=== PATIENT | male | born 1945 | race Caucasian/White ===

== ENCOUNTER → 2020-03-13 | Outpatient (CLI) | payer MEDICARE ==
--- NOTE | 2020-03-13 13:33 | CT ---
EXAMINATION TYPE: CT abdomen pelvis w con DATE OF EXAM: 03/13/2020 COMPARISON: HISTORY: bladder cancer CT DLP: 705 mGycm Automated exposure control for dose reduction was used. CONTRAST: CT scan of the abdomen pelvis is performed with IV Contrast, patient injected with 100 mL of Isovue 3 00. FINDINGS- LUNG BASES- No significant abnormality is appreciated. LIVER/GB- No gross abnormality is appreciated. PANCREAS- No gross abnormality is seen. SPLEEN- No gross abnormality is seen. ADRENALS- No gross abnormality is seen. KIDNEYS/BLADDER-mild right pelvocaliectasis noted. The distal right ureter demonstrates focal dilatio n stranding surrounding the ureter particularly on images 73 through 78. Along the posterior right la teral bladder wall there is eccentric wall thickening compatible with a bladder neoplastic process me asuring a maximal thickness of 7.5 mm. Prostate gland is also enlarged. There is a large left renal lesion measuring 11 Hounsfield units and 4.9 cm compatible with a Bosniak 1 classification simple cyst. Delayed imaging demonstrates the remaining portion of the collecting systems to be segmentally demons trated and with no definite filling defect. As noted above there is focal dilation of the right urete r which does insert near the area of the bladder neoplasm.. BOWEL-bowel gas pattern nonspecific. LYMPH NODES- No greater than 1cm abdominal or pelvic lymph nodes areappreciated. OSSEOUS STRUCTURES-hypertrophic and degenerative changes of the spine. Sclerotic lesion involving the left iliac bone is too small to characterize but likely benign and related to bone arthropathy of th e hips.. OTHER- atherosclerotic change of the aorta. Small fat-containing periumbilical hernia. IMPRESSION- 1. Eccentric bladder wall thickening measuring thickness of 7.5 mm compatible the patient's history o f bladder cancer. Localized dilation of the distal right ureter which inserts at the level the bladde r neoplasm. There is minimal right pelvocaliectasis. No definite filling defect seen within the remaining portion of the visualized collecting system or u reters bilaterally.
== END | disposition home or self-care (01) ==
LOC: RADCTMAIN 10:55
PROVIDERS: ATTEND Urology
DX: N28.82 Megaloureter (principal); C67.6 Malignant neoplasm of ureteric orifice
CPT/HCPCS: 82565; 84520; 74177; 36415; Q9967

== ENCOUNTER → 2021-12-21 | Outpatient (CLI) | payer MEDICARE ==
--- NOTE | 2021-12-22 09:05 | CT ---
EXAMINATION TYPE: CT abdomen pelvis w con DATE OF EXAM: 12/21/2021 COMPARISON: CT 03/13/2020 HISTORY: H/O BLADDER CA CT DLP: 721.6 mGycm Automated exposure control for dose reduction was used. TECHNIQUE: Helical acquisition of images from the lung bases through the pelvis have been completed. CONTRAST: Performed with Oral Contrast and with IV Contrast, patient injected with 100 mL of Isovue 300. FINDINGS: LUNG BASES: Some bandlike densities may reflect atelectasis or scar, similar to prior, no pleural or pericardial effusion. AORTA: Atheromatous changes are present, some wall calcification is noted, left common iliac artery shows possible stenosis proximally LIVER/GB: Low-attenuation within the liver may reflect hepatic steatosis PANCREAS: No significant abnormality is seen. SPLEEN: No significant abnormality is seen. ADRENALS: No significant abnormality is seen. KIDNEYS: Left kidney shows a large exophytic cyst at the lower pole measuring approximately 6.2 cm in creased from 5.3 cm consistent with Bosniak 1 cyst, lobular contours of the kidneys again noted. Foca l defect present at the posterior right kidney is again noted, stable, at the upper pole of the left kidney there is a hypodense focus better seen on excretory phase measuring approximately 17 mm, indet erminant and likely increased in size compared to prior exam, portal venous phase shows probable enha ncement at this level. At the level of the distal right ureter there is some focal bladder wall thickening similar to prior exam, right hydroureter change is again noted. REPRODUCTIVE ORGANS: Prostate gland is enlarged similar to prior BOWEL: Diverticular changes are associated with. FREE AIR: No Free Air visible. ASCITES: None visible. PELVIC ADENOPATHY: None visualized. RETROPERITONEAL ADENOPATHY: No Retroperitoneal Adenopathy visible. URINARY BLADDER: No significant abnormality is seen. OSSEOUS STRUCTURES: No significant abnormality is seen. IMPRESSION: RIGHT RENAL MASS IS INDETERMINATE AT THE UPPER POLE AND HAS GROWN IN THE INTERVAL, FOLLOW-UP RECOMMEN DED. FINDINGS OF THE DISTAL RIGHT URETER SHOWS STABLE APPEARANCE.
== END | disposition home or self-care (01) ==
LOC: RADCTMAIN 16:13
PROVIDERS: ATTEND Urology
DX: N28.89 Other specified disorders of kidney and ureter (principal); Z85.51 Personal history of malignant neoplasm of bladder
CPT/HCPCS: 82565; 84520; 74177; 36415; Q9967

== ENCOUNTER → 2022-05-05 | Outpatient (CLI) | payer MEDICARE ==
--- NOTE | 2022-05-05 14:38 | MR ---
EXAMINATION: MRI KIDNEYS WITHOUT AND WITH CONTRAST. DATE OF EXAMINATION: 05/05/2022. COMPARISON: None available. INDICATION: Evaluate renal mass seen on CT examination. PROCEDURE: Multiplanar, multisequence images of the abdomen were obtained without with contrast. 7.5 mL of Gadavist was given intravenously. FINDINGS: LOWER CHEST : The visualized lung bases are clear. There are no pleural or pericardial effusions. ABDOMEN: Liver and Biliary system: Normal. Adrenal glands: Normal. Kidneys and ureters: There is a cystic structure within the left kidney which is predominantly cysti c and projects off the inferior pole, however there appears to be an enhancing mural nodule as this w ould raise the suspicion of a renal cell carcinoma. The cystic portion of the lesion measures to 4.9 cm in diameter and the enhancing mural nodule along its medial aspect measures 1.8 cm in diameter. Th e right kidney shows some areas of cortical thinning within the interpolar region which is likely rel ated to scarring. There is an additional enhancing mass within the superior pole of the left kidney m easuring 1.5 cm in diameter that is also suspicious for a renal cell carcinoma. Spleen: Normal. Pancreas: Normal. Gallbladder: Normal. Lymph nodes, Peritoneum and mesentery: There is no mesenteric or retroperitoneal lymphadenopathy. Gastrointestinal tract: There are no dilated loops of bowel or free intraperitoneal air. . The appe ndix is normal. Aorta/IVC: Aorta normal. No aortic aneurysm or dissection. IVC normal. Abdominal wall: Normal. BONES: There are no osseous destructive lesions.. ADDITIONAL SIGNIFICANT FINDINGS: None. IMPRESSION: 1. Predominantly cystic mass within the left kidney has an area of enhancing mural nodularity is susp icious for an area of renal cell carcinoma. 2. Mass within the right kidney additionally shows areas of enhancement and is suspicious for a small renal cell carcinoma as well. Recommendation: Urology consult is recommended for further evaluation to further workup the suspected renal cell carcinomas.
== END | disposition home or self-care (01) ==
LOC: RADMRIMAIN 11:14
PROVIDERS: ATTEND Urology
DX: D41.02 Neoplasm of uncertain behavior of left kidney (principal); N28.1 Cyst of kidney, acquired; N28.89 Other specified disorders of kidney and ureter
CPT/HCPCS: 74183; A9585

== ENCOUNTER 2022-12-07 17:59 | Inpatient (IN) | payer MEDICARE ==
[2022-12-07] MEDS ORDERED: ACETAMINOPHEN TAB 500 MG TAB PO STA (19:08)
--- NOTE | 2022-12-07 19:09 | ED ---
General Adult HPI - General Chief complaint: Altered Mental Status Stated complaint: AMS Time Seen by Provider: 12/07/22 18:26 Source: patient, EMS Mode of arrival: EMS Limitations: altered mental status - History of Present Illness Initial comments: Dictation was produced using [employer] dictation software. please excuse any grammatical, word or spelling errors. Chief Complaint: 77-year-old male presents emergency department for altered mental status History of Present Illness: 77-year-old male who is accompanied by his and son who is visiting from out of state. History of present illness obtained from family members at the bedside. Patient was seen at outside emergency department for confusion and altered mental state. He was diagnosed with urinary tract infection. He has indwelling Perez catheter. He was prescribed Levaquin after being seen and evaluated this morning. ultimately ended up being discharged. By the time he got home he was still confused. Son was visiting from out of state hasn't seen the patient in a year. States that he should be brought to [facility]. Patient is hard of hearing and is unreliable historian however he denies any complaints. Family states that he stay off into space and wouldn't respond sometimes. At baseline patient is very high functioning able to care for himself. The ROS documented in this emergency department record has been reviewed and confirmed by me. Those systems with pertinent positive or negative responses have been documented in the HPI. All other systems are other negative and/or noncontributory. - Related Data Home Medications Medication Instructions Recorded Confirmed Clopidogrel [Plavix] 75 mg PO DIRECTED 12/07/22 12/07/22 Donepezil [Aricept] 10 mg PO HS 12/07/22 12/07/22 Niacin 500 mg PO HS 12/07/22 12/07/22 Omeprazole [PriLOSEC] 20 mg PO HS 12/07/22 12/07/22 Simvastatin [Zocor] 40 mg PO HS 12/07/22 12/07/22 Allergies Allergy/AdvReac Type Severity Reaction Status Date / Time No Known Allergies Allergy Verified 12/07/22 19:25 Review of Systems ROS Statement: Those systems with pertinent positive or pertinent negative responses have been documented in the HPI. ROS Other: All systems not noted in ROS Statement are negative. Past Medical History Additional Past Medical History / Comment(s): pt unable to answer History of Any Multi-Drug Resistant Organisms: None Reported Additional Past Surgical History / Comment(s): pt unable to answer Past Psychological History: No Psychological Hx Reported Smoking Status: Never smoker Past Alcohol Use History: Occasional Past Drug Use History: None Reported General Exam - General Exam Comments Initial Comments: PHYSICAL EXAM: General Impression: Alert and oriented x3, hard of hearing HEENT: Normocephalic atraumatic, extra-ocular movements intact, pupils equal and reactive to light bilaterally, mucous membranes moist. Cardiovascular: Heart regular rate and rhythm Chest: Able to complete full sentences, no retractions, no tachypnea Abdomen: abdomen soft, non-tender, non-distended, no organomegaly Musculoskeletal: Pulses present and equal in all extremities, no peripheral edema Motor: no focal deficits noted Neurological: CN II-XII grossly intact, no focal motor or sensory deficits noted Skin: Intact with no visualized rashes Psych: Normal affect and mood Limitations: altered mental status Course Vital Signs 12/07/22 12/07/22 12/07/22 18:04 18:07 18:10 Temperature 100.3 F H Pulse Rate 88 Respiratory 18 Rate Blood Pressure 136/68 136/68 O2 Sat by Pulse 94 L 93 L 94 L Oximetry 12/07/22 12/07/22 12/07/22 18:20 18:30 18:40 Temperature Pulse Rate Respiratory Rate Blood Pressure 122/63 122/63 132/53 O2 Sat by Pulse 93 L 93 L 93 L Oximetry 12/07/22 12/07/22 12/07/22 18:50 19:00 19:10 Temperature Pulse Rate Respiratory Rate Blood Pressure 130/56 130/56 118/69 O2 Sat by Pulse 93 L Oximetry 12/07/22 19:20 Temperature Pulse Rate 81 Respiratory 18 Rate Blood Pressure 124/57 O2 Sat by Pulse 96 Oximetry Procedures - Sepsis Sepsis Focused Exam #1 Time Sepsis Criteria Met: 20:28 Sepsis Focused Exam Date: 12/07/22 Sepsis Focused Exam Time: 20:28 Sepsis Focused Exam Complete: Yes Vital Signs & RN Notes Reviewed: Yes Capillary Refill: < 2 Seconds: Fingers, Toes Peripheral Pulses: Normal: Radial (R), Radial (L), Posterior Tibialis (R), Posterior Tibialis (L), Dorsalis Pedis (R), Dorsalis Pedis (L) Skin Color: Normal for Patient Respiratory Exam: normal lung sounds Cardiovascular Exam: regular rate, normal rhythm Medical Decision Making - Medical Decision Making My EKG interpretation: Ventricular rate 80, sinus rhythm,. Interval 146, QRS 122, QTC 425. No CA prolongation, no QTC prolongation, no ST or T-wave changes noted. Overall, this EKG is unremarkable Was pt. sent in by a medical professional or institution (, PA, SOIL FERTILITY EXTENSION SPECIALIST, urgent care, hospital, or half-way...) When possible be specific @ -No Did you speak to anyone other than the patient for history (EMS, parent, family, police, friend...)? What history was obtained from this source @ -No Did you review nursing and triage notes (agree or disagree)? Why? @ -I reviewed and agree with nursing and triage notes Were old charts reviewed (outside hosp., previous admission, EMS record, old EKG, old radiological studies, urgent care reports/EKG's, half-way records)? Report findings @ -No old charts were reviewed Differential Diagnosis (chest pain, altered mental status, abdominal pain women, abdominal pain men, vaginal bleeding, musculoskeletal, weakness, fever, dyspnea, syncope, headache, dizziness, GI bleed, back pain, seizure, CVA, palpatations, mental health)? @ -Differential Altered Mental Status: Hypoglycemia, DKA, hypercapnia, ETOH, overdose, CO poisoning, trauma, myxedema coma, HTN encephalopathy, infection, encephalitis, psychosis, intercranial hemorrhage, hepatic encephalopathy, meningitis, CVA, this is not meant to be an all-inclusive list EKG interpreted by me (3pts min.). @ -See above X-rays interpreted by me (1pt min.). @ -None done CT interpreted by me (1pt min.). @ -CT brain negative for acute processes U/S interpreted by me (1pt. min.). @ -None done What testing was considered but not performed or refused? (CT, X-rays, U/S, labs)? Why? @ -None What meds were considered but not given or refused? Why? @ -None Did you discuss the management of the patient with other professionals (professionals i.e. , [facility], SOIL FERTILITY EXTENSION SPECIALIST, lab, RT, psych nurse, social media assistant, architectural manager, teacher, jail officer, manager case)? Give summary @ -Labs imaging and clinical presentation was discussed with Dr. Thomas for admission Was smoking cessation discussed for >3mins.? @ -No Was critical care preformed (if so, how long)? @ -No Were there social determinants of health that impacted care today? How? (Homelessness, low income, unemployed, alcoholism, drug addiction, transportation, low edu. Level, literacy, decrease access to med. care, penitentiary, rehab)? @ -No Was there de-escalation of care discussed even if they declined (Discuss DNR or withdrawal of care, Hospice)? DNR status @ -No What co-morbidities impacted this encounter? (DM, HTN, Smoking, COPD, CAD, Cancer, CVA, ARF, Chemo, Hep., AIDS, mental health diagnosis, sleep apnea, mo rbid obesity)? @ -None Was patient admitted / discharged? Hospital course, mention meds given and route, prescriptions, significant lab abnormalities, going to OR and other pertinent info. @ -77-year-old male recently diagnosed with UTI presents emergency department for reevaluation. Seems to be not doing well at home. He is not taking his medications eating. He does appear to be lethargic according to family. Patient is febrile. Blood pressure normal not tachycardic. Urinalysis positive for UTI. Labs otherwise unremarkable. No lactic acidosis. Disposition options are discussed with family. They're agreeable with admission. Urology on consultation. Case discussed with Dr. Maharaj. Undiagnosed new problem with uncertain prognosis? @ -No Drug Therapy requiring intensive monitoring for toxicity (Heparin, Nitro, Insulin, Cardizem)? @ -No Were any procedures done? @ -No Diagnosis/symptom? Acute, or Chronic, or Acute on Chronic? Uncomplicated (without systemic symptoms) or Complicated (systemic symptoms)? @ -1. UTI sepsis Side effects of treatment? @ -No Exacerbation, Progression, or Severe Exacerbation? @ -No Poses a threat to life or bodily function? How? (Chest pain, [place], [place], pneumonia, PE, COPD, DKA, ARF, appy, cholecystitis, CVA, Diverticulitis, Homicidal, Suicid al, threat to staff... and all critical care pts) @ -yes - Lab Data Result diagrams: 12/07/22 19:15 12/07/22 19:15 Lab Results 12/07/22 12/07/22 12/07/22 Range/Units 19:15 19:15 19:15 WBC 11.5 H (3.8-10.6) k/uL RBC 4.35 (4.30-5.90) m/uL Hgb 13.9 (13.0-17.5) gm/dL Hct 40.8 (39.0-53.0) % MCV 93.9 (80.0-100.0) fL MCH 31.9 (25.0-35.0) pg MCHC 34.0 (31.0-37.0) g/dL RDW 12.7 (11.5-15.5) % Plt Count 167 (150-450) k/uL MPV 8.3 Neutrophils % 88 % Lymphocytes % 6 % Monocytes % 4 % Eosinophils % 1 % Basophils % 0 % Neutrophils # 10.1 H (1.3-7.7) k/uL Lymphocytes # 0.7 L (1.0-4.8) k/uL Monocytes # 0.5 (0-1.0) k/uL Eosinophils # 0.1 (0-0.7) k/uL Basophils # 0.0 (0-0.2) k/uL PT (9.0-12.0) sec INR (<1.2) APTT (22.0-30.0) sec Sodium 134 L (137-145) mmol/L Potassium 4.5 (3.5-5.1) mmol/L Chloride 102 (98-107) mmol/L Carbon Dioxide 22 (22-30) mmol/L Anion Gap 10 mmol/L BUN 22 H (9-20) mg/dL Creatinine 1.49 H (0.66-1.25) mg/dL Est GFR (CKD-EPI)AfAm 51 (>60 ml/min/1.73 sqM) Est GFR (CKD-EPI)NonAf 44 (>60 ml/min/1.73 sqM) Glucose 190 H (74-99) mg/dL Plasma Lactic Acid Giovanni 1.4 (0.7-2.0) mmol/L Calcium 8.8 (8.4-10.2) mg/dL Magnesium 1.7 (1.6-2.3) mg/dL Total Bilirubin 1.0 (0.2-1.3) mg/dL AST 19 (17-59) U/L ALT 21 (4-49) U/L Alkaline Phosphatase 77 (38-126) U/L Total Protein 6.7 (6.3-8.2) g/dL Albumin 3.5 (3.5-5.0) g/dL Urine Color Urine Appearance (Clear) Urine pH (5.0-8.0) Ur Specific Mcdonald (1.001-1.035) Urine Protein (Negative) Urine Glucose (UA) (Negative) Urine Ketones (Negative) Urine Blood (Negative) Urine Nitrite (Negative) Urine Bilirubin (Negative) Urine Urobilinogen (<2.0) mg/dL Ur Leukocyte Esterase (Negative) Urine RBC (0-5) /hpf Urine WBC (0-5) /hpf Urine Bacteria (None) /hpf Hyaline Casts (0-2) /lpf Urine Mucus (None) /hpf 12/07/22 12/07/22 Range/Units 19:15 19:29 WBC (3.8-10.6) k/uL RBC (4.30-5.90) m/uL Hgb (13.0-17.5) gm/dL Hct (39.0-53.0) % MCV (80.0-100.0) fL MCH (25.0-35.0) pg MCHC (31.0-37.0) g/dL RDW (11.5-15.5) % Plt Count (150-450) k/uL MPV Neutrophils % % Lymphocytes % % Monocytes % % Eosinophils % % Basophils % % Neutrophils # (1.3-7.7) k/uL Lymphocytes # (1.0-4.8) k/uL Monocytes # (0-1.0) k/uL Eosinophils # (0-0.7) k/uL Basophils # (0-0.2) k/uL PT 11.5 (9.0-12.0) sec INR 1.1 (<1.2) APTT 24.2 (22.0-30.0) sec Sodium (137-145) mmol/L Potassium (3.5-5.1) mmol/L Chloride (98-107) mmol/L Carbon Dioxide (22-30) mmol/L Anion Gap mmol/L BUN (9-20) mg/dL Creatinine (0.66-1.25) mg/dL Est GFR (CKD-EPI)AfAm (>60 ml/min/1.73 sqM) Est GFR (CKD-EPI)NonAf (>60 ml/min/1.73 sqM) Glucose (74-99) mg/dL Plasma Lactic Acid Giovanni (0.7-2.0) mmol/L Calcium (8.4-10.2) mg/dL Magnesium (1.6-2.3) mg/dL Total Bilirubin (0.2-1.3) mg/dL AST (17-59) U/L ALT (4-49) U/L Alkaline Phosphatase (38-126) U/L Total Protein (6.3-8.2) g/dL Albumin (3.5-5.0) g/dL Urine Color Yellow Urine Appearance Cloudy (Clear) Urine pH 5.5 (5.0-8.0) Ur Specific Mcdonald 1.031 (1.001-1.035) Urine Protein 2+ H (Negative) Urine Glucose (UA) 1+ H (Negative) Urine Ketones 1+ H (Negative) Urine Blood Large H (Negative) Urine Nitrite Positive (Negative) Urine Bilirubin Negative (Negative) Urine Urobilinogen <2.0 (<2.0) mg/dL Ur Leukocyte Esterase Large H (Negative) Urine RBC 34 H (0-5) /hpf Urine WBC 110 H (0-5) /hpf Urine Bacteria Rare H (None) /hpf Hyaline Casts 3 H (0-2) /lpf Urine Mucus Few H (None) /hpf Disposition Clinical Impression: Sepsis secondary to UTI Disposition: ADMITTED IP TO THIS HOSP Condition: Fair Referrals: Carl Gonsales MD [Primary Care Provider] - 1-2 days Decision Time: 20:38
[2022-12-07 19:32] LABS: Basophils % (A) 0 %; Eosinophils # (A) 0.1 k/uL (0-0.7); Eosinophils % (A) 1 %; HCT 40.8 % (39.0-53.0); HGB 13.9 gm/dL (13.0-17.5); Lymphocytes # (A) 0.7 k/uL (1.0-4.8); Lymphocytes % (A) 6 %; MCH 31.9 pg (25.0-35.0); MCV 93.9 fL (80.0-100.0); Mean Platelet Volume 8.3; Monocytes # (A) 0.5 k/uL (0-1.0); Monocytes % (A) 4 %; Neutrophils # (A) 10.1 k/uL (1.3-7.7); Neutrophils % (A) 88 %; Platelet Count 167 k/uL (150-450); RBC 4.35 m/uL (4.30-5.90); RDW 12.7 % (11.5-15.5); WBC 11.5 k/uL (3.8-10.6)
[2022-12-07 19:43] LABS: INR 1.1 (<1.2); Partial Thromboplastin Time 24.2 sec (22.0-30.0); Prothrombin Time 11.5 sec (9.0-12.0)
[2022-12-07 19:51] LABS: Appearance,Urine Cloudy (Clear); Bacteria,Urine Rare /hpf; Bilirubin,Urine Negative (Negative); Blood,Urine Large (Negative); Color,Urine Yellow; Glucose,Urine (UA) 1+ (Negative); Hyaline Casts,Urine 3 /lpf (0-2); Ketones,Urine 1+ (Negative); Leukocyte Esterase,Urine Large (Negative); Mucus,Urine Few /hpf; Nitrite,Urine Positive (Negative); PH, Urine 5.5 (5.0-8.0); Protein,Urine 2+ (Negative); RBC,Urine 34 /hpf (0-5); Specific Gravity,Urine 1.031 (1.001-1.035); Urobilinogen,Urine <2.0 mg/dL (<2.0); WBC,Urine 110 /hpf (0-5)
[2022-12-07 19:54] LABS: Albumin 3.5 g/dL (3.5-5.0); Calcium 8.8 mg/dL (8.4-10.2); Magnesium 1.7 mg/dL (1.6-2.3); Potassium 4.5 mmol/L (3.5-5.1); Total Protein 6.7 g/dL (6.3-8.2)
[2022-12-07] MEDS ORDERED: cefTRIAXone IN SWFI 1,000 MG/10 ML SYRINGE IVP STA (20:03)
--- NOTE | 2022-12-07 20:21 | CT ---
EXAMINATION TYPE: CT brain wo con DATE OF EXAM: 12/07/2022 HISTORY: AMS CT DLP: 1174.4 mGycm. Automated Exposure Control for Dose Reduction was Utilized. TECHNIQUE: CT scan of the head is performed without contrast. COMPARISON: None. FINDINGS: There is no acute intracranial hemorrhage or midline shift identified. There is moderate diffuse ventricular and sulcal prominence consistent with diffuse age-related cerebral atrophy. Ther e is mild low-attenuation in the periventricular white matter consistent with chronic small vessel is chemic change. Soft tissue density consistent with cerumen is seen in the bilateral external auditory canals. The globes are intact and the visualized sinuses are clear. IMPRESSION: No acute intracranial hemorrhage or midline shift. There is moderate diffuse age-relate d cerebral atrophy and mild chronic small vessel ischemic change noted.
[2022-12-07] MEDS ORDERED: NALOXONE 0.4 MG/ML 1 ML VIAL IV PRN (20:32)
[2022-12-07] MEDS: SODIUM CHLORIDE 0.9% 1,000 ML IV SCH (20:44)
[2022-12-07] MEDS: ATORVASTATIN 20 MG TAB PO SCH (22:47)
[2022-12-07] MEDS: PANTOPRAZOLE 40 MG TABLET PO SCH (22:47)
[2022-12-08] MEDS: ACETAMINOPHEN TAB 325 MG TAB PO PRN ×2 (01:52→17:43)
[2022-12-08] MEDS: SODIUM CHLORIDE 0.9% 1,000 ML IV SCH ×2 (11:52→19:16)
--- NOTE | 2022-12-08 16:24 | P.HPIM ---
History of Present Illness H&P Date: 12/07/22 Chief Complaint: Change but status This is a 77-year-old patient follows Dr. Sams. Reyes the ER by the and the son. [place]iting from out [place]. Patient was seen at [facility] for confusion and altered mental status. Diagnosed with UTI. Has indwelling Perez catheter. He was discharged on Levaquin. This morning. When the patient got home he was still confused. Son is from out of state hasn't seen the patient for about a year. Patient is hard of hearing cancer difficult historian. Patient underwent scraping of the bladder with Dr. simon a week ago. Due to see him in the office later this week. Denies any nausea vomiting. States his appetite is fair. Denies any pain. Patient had a Perez catheter since the bladder procedure a week ago. Patient's found to be more confused than baseline. Found to UTI in the ER. Reported to have a fever Review of systems: Difficult to obtain as patient has not of hearing. Past medical history to include: TIA, bladder cancer, cognitive impairment, GERD, hypercholesterolemia Social history: Lives with his deifjt-ds-tyi Rubina. Independent with ADLs. Physical examination: VITAL SIGNS: [100.3, 88, 18, 136/60, 94% room air GENERAL: BMI 21.7, laying in bed tired a bit confused. EYES: Pupils equal. Conjunctiva normal. HEENT: External appearance of nose and ears normal, oral cavity grossly normal. Hard of hearing NECK: JVD not raised; masses not palpable. HEART: First and second heart sounds are normal; no edema. LUNGS: Respiratory rate normal; clear to auscultation. ABDOMEN: Soft, nontender, liver spleen not palpable, no masses palpable. PSYCH: Able to answer some questions.l. MUSCULOSKELETAL:No Clubbing/cyanosis;muscles-grossly intact NEUROLOGICAL: Cranial nerves grossly intact; no facial asymmetry, power and sensation grossly intact. LYMPHATICS: No lymph nodes palpable in the axilla and neck INVESTIGATIONS, reviewed in the clinical context: White count 11.5 hemoglobin 13.9 platelets 167 sodium 134 potassium 4.5. 22 creatinine 1.49 UA positive for nitrite, leukoesterase Assessment plan: -Acute complicated UTI secondary to Perez catheter. Patient had bladder pr ocedure done a week ago. Has had a Perez catheter for about a week. causing delirium IV ceftriaxone. Consult nephrology -Acute metabolic causing delirium Treat underlying infection -Bladder cancer with scrapings done last week. By Dr. simon. 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 Aricept -Hyperlipidemia Zocor 40 mg daily at bedtime -GERD Prilosec 20 mg daily at bedtime -Full code Past Medical History Additional Past Medical History / Comment(s): pt unable to answer History of Any Multi-Drug Resistant Organisms: None Reported Additional Past Surgical History / Comment(s): pt unable to answer Past Psychological History: No Psychological Hx Reported Smoking Status: Never smoker Past Alcohol Use History: Occasional Past Drug Use History: None Reported Medications and Allergies Home Medications Medication Instructions Recorded Confirmed Type Clopidogrel [Plavix] 75 mg PO DIRECTED 12/07/22 12/07/22 History Donepezil [Aricept] 10 mg PO HS 12/07/22 12/07/22 History Niacin 500 mg PO HS 12/07/22 12/07/22 History Omeprazole [PriLOSEC] 20 mg PO HS 12/07/22 12/07/22 History Simvastatin [Zocor] 40 mg PO HS 12/07/22 12/07/22 History Allergies Allergy/AdvReac Type Severity Reaction Status Date / Time No Known Allergies Allergy Verified 12/07/22 19:25 Physical Exam Vitals: Vital Signs Temp Pulse Resp BP Pulse Ox 12/07/22 20:40 117/74 12/07/22 20:30 109/64 95 12/07/22 20:20 71 17 109/64 94 L 12/07/22 20:10 116/51 12/07/22 20:00 120/60 94 L 12/07/22 19:50 120/60 94 L 12/07/22 19:40 129/55 93 L 12/07/22 19:30 124/57 12/07/22 19:20 81 18 124/57 96 12/07/22 19:10 118/69 12/07/22 19:00 130/56 12/07/22 18:50 130/56 93 L 12/07/22 18:40 132/53 93 L 12/07/22 18:30 122/63 93 L 12/07/22 18:20 122/63 93 L 12/07/22 18:10 136/68 94 L 12/07/22 18:07 93 L 12/07/22 18:04 100.3 F H 88 18 136/68 94 L Intake and Output 12/07/22 12/07/22 12/07/22 06:59 14:59 22:59 Other: Weight 72.575 kg Results CBC & Chem 7: 12/07/22 19:15 12/07/22 19:15 Labs: Abnormal Lab Results - Last 24 Hours (Table) 12/07/22 12/07/22 12/07/22 Range/Units 19:15 19:15 19:29 WBC 11.5 H (3.8-10.6) k/uL Neutrophils # 10.1 H (1.3-7.7) k/uL Lymphocytes # 0.7 L (1.0-4.8) k/uL Sodium 134 L (137-145) mmol/L BUN 22 H (9-20) mg/dL Creatinine 1.49 H (0.66-1.25) mg/dL Glucose 190 H (74-99) mg/dL Urine Protein 2+ H (Negative) Urine Glucose (UA) 1+ H (Negative) Urine Ketones 1+ H (Negative) Urine Blood Large H (Negative) Ur Leukocyte Esterase Large H (Negative) Urine RBC 34 H (0-5) /hpf Urine WBC 110 H (0-5) /hpf Urine Bacteria Rare H (None) /hpf Hyaline Casts 3 H (0-2) /lpf Urine Mucus Few H (None) /hpf
--- NOTE | 2022-12-08 17:59 | P.PN ---
Progress Note - Text Progress Note Date: 12/08/22 Chief Complaint: Change but status This is a 77-year-old patient follows Dr. Sams. Reyes the ER by the and the son. Visiting from out of state. Patient was seen at [facility] for confusion and altered mental status. Diagnosed with UTI. Has indwelling Perez catheter. He was discharged on Levaquin. This morning. When the patient got home he was still confused. Son is from out of state hasn't seen the patient for about a year. Patient is hard of hearing cancer difficult historian. Patient underwent scraping of the bladder with Dr. simon a week ago. Due to see him in the office later this week. Denies any nausea vomiting. States his appetite is fair. Denies any pain. Patient had a Perez catheter since the bladder procedure a week ago. Patient's found to be more confused than baseline. Found to UTI in the ER. Reported to have a fever May 18: Laying in bed. More awake today. Answering questions better. Spiked a fever to 101.6 last night. Ate little breakfast Active Medications Acetaminophen (Acetaminophen Tab 325 Mg Tab) 650 mg PO Q6HR PRN PRN Reason: Mild Pain or Fever > 100.5 Last Admin: 12/08/22 01:52 Dose: 650 mg Atorvastatin Calcium (Atorvastatin 20 Mg Tab) 20 mg PO [facility] Last Admin: 12/07/22 22:47 Dose: 20 mg Sodium Chloride (Saline 0.9%) 1,000 mls @ 75 mls/hr IV .[id number] [facility] Last Admin: 12/08/22 11:52 Dose: Not Given Ceftriaxone Sodium 1 gm/ (Sodium Chloride) 50 mls @ 100 mls/hr IVPB Q12H [facility]; Protocol Last Admin: 12/08/22 08:03 Dose: 100 mls/hr Naloxone HCl (Naloxone 0.4 Mg/Ml 1 Ml Vial) 0.2 mg IV Q2M PRN PRN Reason: Opioid Reversal Pantoprazole Sodium (Pantoprazole 40 Mg Tablet) 40 mg PO [facility] Last Admin: 12/07/22 22:47 Dose: 40 mg Past medical history to include: TIA, bladder cancer, cognitive impairment, GERD, hypercholesterolemia Social history: Lives with his uqlfob-vs-zgg Rubina. Independent with ADLs. Physical examination: VITAL SIGNS: T-max 101.6, 62, 16, 100/64, 97% room air GENERAL: BMI 21.7, laying in bed tired more awake EYES: Pupils equal. Conjunctiva normal. HEENT: External appearance of nose and ears normal, oral cavity grossly normal. Hard of hearing NECK: JVD not raised; masses not palpable. HEART: First and second heart sounds are normal; no edema. LUNGS: Respiratory rate normal; clear to auscultation. ABDOMEN: Soft, nontender, liver spleen not palpable, no masses palpable. PSYCH: Answering questions better, more awake INVESTIGATIONS, reviewed in the clinical context: White count 11.5 hemoglobin 13.9 platelets 167 sodium 134 potassium 4.5. 22 creatinine 1.49 UA positive for nitrite, leukoesterase Assessment plan: -Acute complicated UTI secondary to Perez catheter. Patient had bladder procedure done a week ago. Has had a Perez catheter for about a week. causing delirium: Slow improvement IV ceftriaxone. Consult nephrology -Sepsis from conjugated UTI, POA: Slow improvement -Acute metabolic encephalopathy with delirium: Improvement Treat underlying infection -Evaluate for CK D Renal ultrasound -Bladder cancer with scrapings done last week. By Dr. simon. 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 Aricept -Hyperlipidemia Zocor 40 mg daily at bedtime -GERD Prilosec 20 mg daily at bedtime -Full code Increase IV fluids 200 mL out. Continue IV ceftriaxone. Other medications to continue. Follow labs
[2022-12-08] MEDS: PANTOPRAZOLE 40 MG TABLET PO SCH (20:02)
[2022-12-08] MEDS: ATORVASTATIN 20 MG TAB PO SCH (20:02)
--- NOTE | 2022-12-08 20:08 | US ---
EXAMINATION TYPE: US kidneys/renal and bladder DATE OF EXAM: 12/08/2022 COMPARISON: MRI: 05/05/22 CLINICAL INDICATION: Male, 77 years old with history of Evaluate for CK D; eval for ckd EXAM MEASUREMENTS: Right Kidney: 9.9 x 4.9 x 4.7 cm Left Kidney: 11.4 x 4.2 x 4.8 cm Right Kidney: No hydronephrosis or masses seen Left Kidney: Predominantly cyst with solid component seen in inferior pole measuring 3.6 x 3.7 x 3.3c m as Seen on MRI in 2021 Bladder: Limited due to donnelly Bilateral Jets seen: No IMPRESSION: 1. No evidence of obstructive uropathy. 2. Left renal cyst with solid component as seen on prior MRI 05/05/2022. This is a similar appearanc e to prior MRI however the check totaler did not measure there is no ability to measure the soft tissue component but appears proportional to prior MRI.
--- NOTE | 2022-12-08 20:39 | P.GSCN ---
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 He underwent resection of recurrent tumors on 11/30/2022. Pathology showed high-grade urothelial carcinoma with lamina propria invasion.The Perez catheter remains in place. He presents with weakness and altered mental status. Evaluation revealed that he was febrile, and he was admitted with UTI and possible sepsis. Review of Systems - Constitutional Reports fever, Reports weakness - Genitourinary Denies dysuria, Denies hematuria - Neurological Reports confusion, Reports weakness Past Medical History Additional Past Medical History / Comment(s): Bladder cancer, TIAs 4-5 yrs ago, History of Any Multi-Drug Resistant Organisms: None Reported Additional Past Surgical History / Comment(s): bypass sx on leg >20yrs ago, blader scrapings Past Anesthesia/Blood Transfusion Reactions: No Reported Reaction Past Psychological History: No Psychological Hx Reported Smoking Status: Former smoker Past Alcohol Use History: Occasional Past Drug Use History: None Reported Medications and Allergies Home Medications Medication Instructions Recorded Confirmed Type Clopidogrel [Plavix] 75 mg PO DIRECTED 12/07/22 12/07/22 History Donepezil [Aricept] 10 mg PO HS 12/07/22 12/07/22 History Niacin 500 mg PO HS 12/07/22 12/07/22 History Omeprazole [PriLOSEC] 20 mg PO HS 12/07/22 12/07/22 History Simvastatin [Zocor] 40 mg PO HS 12/07/22 12/07/22 History Allergies Allergy/AdvReac Type Severity Reaction Status Date / Time No Known Allergies Allergy Verified 12/07/22 19:25 Surgical - Exam Vital Signs Temp Pulse Resp BP Pulse Ox 100.3 F H 88 18 136/68 94 L 12/07/22 18:04 12/07/22 18:04 12/07/22 18:04 12/07/22 18:04 12/07/22 18:04 - General well developed, well nourished, no distress - Respiratory normal respiratory effort - Abdomen Abdomen: soft, non tender, no guarding, no rigid, no rebound - Genitourinary normal penis with no external lesions, testicles non-tender - Psychiatric oriented to time, oriented to person, oriented to place, speech is normal, memory intact Results - Labs 12/07/22 19:15 12/07/22 19:15 Abnormal Lab Results - Last 24 Hours (Table) 12/07/22 12/07/22 12/07/22 Range/Units 19:15 19:15 19:29 WBC 11.5 H (3.8-10.6) k/uL Neutrophils # 10.1 H (1.3-7.7) k/uL Lymphocytes # 0.7 L (1.0-4.8) k/uL Sodium 134 L (137-145) mmol/L BUN 22 H (9-20) mg/dL Creatinine 1.49 H (0.66-1.25) mg/dL Glucose 190 H (74-99) mg/dL Urine Protein 2+ H (Negative) Urine Glucose (UA) 1+ H (Negative) Urine Ketones 1+ H (Negative) Urine Blood Large H (Negative) Ur Leukocyte Esterase Large H (Negative) Urine RBC 34 H (0-5) /hpf Urine WBC 110 H (0-5) /hpf Urine Bacteria Rare H (None) /hpf Hyaline Casts 3 H (0-2) /lpf Urine Mucus Few H (None) /hpf Diabetes panel 12/07/22 Range/Units 19:15 Sodium 134 L (137-145) mmol/L Potassium 4.5 (3.5-5.1) mmol/L Chloride 102 (98-107) mmol/L Carbon Dioxide 22 (22-30) mmol/L BUN 22 H (9-20) mg/dL Creatinine 1.49 H (0.66-1.25) mg/dL Glucose 190 H (74-99) mg/dL Calcium 8.8 (8.4-10.2) mg/dL AST 19 (17-59) U/L ALT 21 (4-49) U/L Alkaline Phosphatase 77 (38-126) U/L Total Protein 6.7 (6.3-8.2) g/dL Albumin 3.5 (3.5-5.0) g/dL Calcium panel 12/07/22 Range/Units 19:15 Calcium 8.8 (8.4-10.2) mg/dL Albumin 3.5 (3.5-5.0) g/dL Pituitary panel 12/07/22 Range/Units 19:15 Sodium 134 L (137-145) mmol/L Potassium 4.5 (3.5-5.1) mmol/L Chloride 102 (98-107) mmol/L Carbon Dioxide 22 (22-30) mmol/L BUN 22 H (9-20) mg/dL Creatinine 1.49 H (0.66-1.25) mg/dL Glucose 190 H (74-99) mg/dL Calcium 8.8 (8.4-10.2) mg/dL Adrenal panel 12/07/22 Range/Units 19:15 Sodium 134 L (137-145) mmol/L Potassium 4.5 (3.5-5.1) mmol/L Chloride 102 (98-107) mmol/L Carbon Dioxide 22 (22-30) mmol/L BUN 22 H (9-20) mg/dL Creatinine 1.49 H (0.66-1.25) mg/dL Glucose 190 H (74-99) mg/dL Calcium 8.8 (8.4-10.2) mg/dL Total Bilirubin 1.0 (0.2-1.3) mg/dL AST 19 (17-59) U/L ALT 21 (4-49) U/L Alkaline Phosphatase 77 (38-126) U/L Total Protein 6.7 (6.3-8.2) g/dL Albumin 3.5 (3.5-5.0) g/dL Assessment and Plan Assessment: The patient underwent resection of recurrent tumors on 11/30/2022. He now presents with weakness and mental status changes. Findings are suggestive of a UTI with possible sepsis. (1) Sepsis secondary to UTI Current Visit: Yes Status: Acute Code(s): A41.9 - SEPSIS, UNSPECIFIED ORGANISM; N39.0 - URINARY TRACT INFECTION, SITE NOT SPECIFIED SNOMED Code(s): 447561076 (2) Malignant neoplasm of bladder, unspecified Current Visit: Yes Status: Acute Code(s): C67.9 - MALIGNANT NEOPLASM OF BLADDER, UNSPECIFIED SNOMED Code(s): 223731433 Plan: Agree with antibiotic therapy and IV hydration. He is currently receiving ceftriaxone. The Perez catheter will likely be removed tomorrow. Time with Patient: Greater than 30
[2022-12-08 23:22] LABS: Appearance,Urine Cloudy (Clear); Bacteria,Urine Rare /hpf; Bilirubin,Urine Negative (Negative); Blood,Urine Large (Negative); Color,Urine Yellow; Glucose,Urine (UA) Trace (Negative); Ketones,Urine Negative (Negative); Leukocyte Esterase,Urine Large (Negative); Mucus,Urine Rare /hpf; Nitrite,Urine Negative (Negative); Protein,Urine 1+ (Negative); RBC,Urine 12 /hpf (0-5); Specific Gravity,Urine 1.017 (1.001-1.035); Squamous Epithelial Cell,Urine <1 /hpf (0-4); Urobilinogen,Urine <2.0 mg/dL (<2.0); WBC,Urine 131 /hpf (0-5)
[2022-12-09] MEDS: SODIUM CHLORIDE 0.9% 1,000 ML IV SCH ×2 (06:17→14:19)
[2022-12-09 08:16] VITALS: BP 144/68; PULSE 70; RESP 19; TEMP 98.1
[2022-12-09 11:49] LABS: African American GFR (CKD) 60 (>60 ml/min/1.73 sqM); Anion Gap 6 mmol/L; Blood Urea Nitrogen 17 mg/dL (9-20); Calcium 8.2 mg/dL (8.4-10.2); Carbon Dioxide 23 mmol/L (22-30); Chloride 107 mmol/L (98-107); Glucose 180 mg/dL (74-99); Non-African American GFR(CKD) 52 (>60 ml/min/1.73 sqM); Sodium 136 mmol/L (137-145)
[2022-12-09 11:58] LABS: Basophils % (A) 0 %; Eosinophils # (A) 0.3 k/uL (0-0.7); Eosinophils % (A) 4 %; HCT 40.2 % (39.0-53.0); HGB 13.5 gm/dL (13.0-17.5); Lymphocytes # (A) 1.4 k/uL (1.0-4.8); Lymphocytes % (A) 20 %; MCH 31.8 pg (25.0-35.0); MCHC 33.7 g/dL (31.0-37.0); MCV 94.6 fL (80.0-100.0); Monocytes # (A) 0.5 k/uL (0-1.0); Monocytes % (A) 8 %; Neutrophils # (A) 4.6 k/uL (1.3-7.7); Neutrophils % (A) 65 %; Platelet Count 168 k/uL (150-450); RBC 4.25 m/uL (4.30-5.90); RDW 12.9 % (11.5-15.5); WBC 7.1 k/uL (3.8-10.6)
--- NOTE | 2022-12-09 17:40 | P.PN ---
Subjective Progress Note Date: 12/09/22 Principal diagnosis: Bladder cancer UTI The patient was seen this morning and stated that he was feeling much better. The Perez catheter remained in place, draining clear yellow urine. Objective - Vital Signs Vital signs: Vital Signs Temp 98.1 F 12/09/22 07:12 Pulse 70 12/09/22 07:12 Resp 19 12/09/22 07:12 BP 144/68 12/09/22 07:12 Pulse Ox 94 L 12/09/22 07:12 FiO2 Intake & Output 12/08/22 12/09/22 12/09/22 18:59 06:59 18:59 Output Total 425 520 Balance -425 -520 Output: Urine 425 520 Other: Voiding Method Indwelling Catheter Indwelling Catheter - Constitutional General appearance: Present: average body habitus, no acute distress - Genitourinary Genitourinary Comment(s): Normal phallus, normal testes - Psychiatric Psychiatric: Present: A&O x's 3 - Labs CBC & Chem 7: 12/09/22 09:59 12/09/22 09:59 Labs: Abnormal Lab Results - Last 24 Hours (Table) 12/08/22 12/09/22 12/09/22 Range/Units 22:35 09:59 09:59 RBC 4.25 L (4.30-5.90) m/uL Sodium (137-145) mmol/L Creatinine (0.66-1.25) mg/dL Glucose (74-99) mg/dL Calcium (8.4-10.2) mg/dL Procalcitonin 0.84 H (0.02-0.09) ng/mL Urine Protein 1+ H (Negative) Urine Glucose (UA) Trace H (Negative) Urine Blood Large H (Negative) Ur Leukocyte Esterase Large H (Negative) Urine RBC 12 H (0-5) /hpf Urine WBC 131 H (0-5) /hpf Urine WBC Clumps Occasional H (None) /hpf Urine Bacteria Rare H (None) /hpf Urine Mucus Rare H (None) /hpf 12/09/22 Range/Units 09:59 RBC (4.30-5.90) m/uL Sodium 136 L (137-145) mmol/L Creatinine 1.31 H (0.66-1.25) mg/dL Glucose 180 H (74-99) mg/dL Calcium 8.2 L (8.4-10.2) mg/dL Procalcitonin (0.02-0.09) ng/mL Urine Protein (Negative) Urine Glucose (UA) (Negative) Urine Blood (Negative) Ur Leukocyte Esterase (Negative) Urine RBC (0-5) /hpf Urine WBC (0-5) /hpf Urine WBC Clumps (None) /hpf Urine Bacteria (None) /hpf Urine Mucus (None) /hpf Microbiology - Last 24 Hours (Table) 12/08/22 22:35 Urine Culture - Preliminary Urine,Catheterized Assessment and Plan Assessment: The patient underwent resection of recurrent tumors on 11/30/2022. He was admitted with weakness and mental status changes. Findings were suggestive of a UTI with possible sepsis. He has received IV hydration and parenteral analgesics and is feeling much better. (1) Sepsis secondary to UTI Status: Acute Code(s): A41.9 - SEPSIS, UNSPECIFIED ORGANISM; N39.0 - URINARY TRACT INFECTION, SITE NOT SPECIFIED SNOMED Code(s): 697623368 (2) Malignant neoplasm of bladder, unspecified Status: Acute Code(s): C67.9 - MALIGNANT NEOPLASM OF BLADDER, UNSPECIFIED SNOMED Code(s): 852224739 Plan: Patient is to be discharged home on oral Ceftin. He was given an appointment to follow-up with me on 12/16/2022.
--- NOTE | 2022-12-09 19:20 | P.DS ---
Providers Date of admission: 12/07/22 20:34 Expected date of discharge: 12/09/22 Attending physician: Keon Thomas Consults: 12/07/22 20:32 Consult Physician Routine Consulting Provider: Tomas Claudio Consult Reason/Comments: donnelly catheter Do you want consulting provider notified?: Yes Primary care physician: [facility] Course: Chief Complaint: Change but status This is a 77-year-old patient follows Dr. Sams. Reyes the ER by the and the son. [place]iting [place]. Patient was seen at [facility] for confusion and altered mental status. Diagnosed with UTI. Has indwelling Donnelly catheter. He was discharged on Levaquin. This morning. When the patient got home he was still confused. Son is from out of state hasn't seen the patient for about a year. Patient is hard of hearing cancer difficult historian. Patient underwent scraping of the bladder with Dr. claudio a week ago. Due to see him in the office later this week. Denies any nausea vomiting. States his appetite is fair. Denies any pain. Patient had a Donnelly catheter since the bladder procedure a week ago. Patient's found to be more confused than baseline. Found to UTI in the ER. Reported to have a fever May 18: Laying in bed. More awake today. Answering questions better. Spiked a fever to 101.6 last night. Ate little breakfast December 09: Eating well. Donnelly catheter discontinued. Making good urine.. Repeat hemoglobin stable. Complete 3 more days of Ceftin. Follow up with Dr. claudio outpatient. Discussion and discharge planning more than 35 minutes Past medical history to include: TIA, bladder cancer, cognitive impairment, GERD, hypercholesterolemia Social history: Lives with his ldrgvt-kw-ajm Rubina. Independent with ADLs. Physical examination: VITAL SIGNS: 98.1, 70, 19, 140/60, 94% room air GENERAL: BMI 21.7, laying in bed comfortable EYES: Pupils equal. Conjunctiva normal. HEENT: External appearance of nose and ears normal, oral cavity grossly normal. Hard of hearing NECK: JVD not raised; masses not palpable. HEART: First and second heart sounds are normal; no edema. LUNGS: Respiratory rate normal; clear to auscultation. ABDOMEN: Soft, nontender, liver spleen not palpable, no masses palpable. PSYCH: Answering questions better, more awake INVESTIGATIONS, reviewed in the clinical context: December 09: White count 7.1 with 30.5 potassium 4 creatinine 1.31 White count 11.5 hemoglobin 13.9 platelets 167 sodium 134 potassium 4.5. 22 creatinine 1.49 UA positive for nitrite, leukoesterase Assessment plan: -Acute complicated UTI secondary to Donnelly catheter. Patient had bladder procedure done a week ago. Has had a Donnelly catheter for about a week. causing delirium: Improved IV ceftriaxone. Patient to follow outpatient with urology. Continue 3 more days of Ceftin. -Sepsis from conjugated UTI, POA: Improved -Acute metabolic encephalopathy with delirium: Improved Treat underlying infection -Evaluate for CK D Renal ultrasound -Bladder cancer with scrapings done last week. By Dr. claudio. 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 Aricept -Hyperlipidemia Zocor 40 mg daily at bedtime -GERD Prilosec 20 mg daily at bedtime -Full code Disposition: Home Plan - Discharge Summary Discharge Rx Participant: Yes New Discharge Prescriptions: New Cefuroxime [Ceftin] 250 mg PO BID #10 tab Continue Omeprazole [PriLOSEC] 20 mg PO HS Donepezil [Aricept] 10 mg PO HS Clopidogrel [Plavix] 75 mg PO DIRECTED Niacin 500 mg PO HS Simvastatin [Zocor] 40 mg PO HS Discharge Medication List Clopidogrel [Plavix] 75 mg PO DIRECTED 12/07/22 [History] Donepezil [Aricept] 10 mg PO HS 12/07/22 [History] Niacin 500 mg PO HS 12/07/22 [History] Omeprazole [PriLOSEC] 20 mg PO HS 12/07/22 [History] Simvastatin [Zocor] 40 mg PO HS 12/07/22 [History] Cefuroxime [Ceftin] 250 mg PO BID #10 tab 12/09/22 [Rx] Follow up Appointment(s)/Referral(s): Tomas Claudio MD [STAFF PHYSICIAN] - 12/16/22 9:00 am Carl Gonsales MD [Primary Care Provider] - 12/13/22 2:30 pm (At [facility]) Patient Instructions/Handouts: Urinary Tract Infection in Men (DC) Discharge Disposition: HOME WITH HOME HEALTH SERVICES
== END 2022-12-09 14:46 | disposition home health service (06) | DRG 698 ==
LOC: EC 17:59 → 4SSUR 20:34
PROVIDERS: ADMIT Hospitalist; ATTEND Hospitalist
DX: T83.511A Infection and inflammatory reaction due to indwelling urethral catheter, initial encounter (principal); A41.9 Sepsis, unspecified organism; G93.41 Metabolic encephalopathy; F05 Delirium due to known physiological condition; N39.0 Urinary tract infection, site not specified; C67.9 Malignant neoplasm of bladder, unspecified; E78.00 Pure hypercholesterolemia, unspecified; K21.9 Gastro-esophageal reflux disease without esophagitis; Z86.73 Personal history of transient ischemic attack (TIA), and cerebral infarction without residual deficits; F02.80 Dementia in other diseases classified elsewhere, unspecified severity, without behavioral disturbance, psychotic disturbance, mood disturbance, and anxiety; Z79.899 Other long term (current) drug therapy; Y73.2 Prosthetic and other implants, materials and accessory gastroenterology and urology devices associated with adverse incidents
CPT/HCPCS: 36415; 70450; 76770; 80048; 80053; 81001; 83605; 83735; 84145; 85025; 85610; 85730; 87086; 93005; 96361; 96374; 99285

== ENCOUNTER → 2023-01-27 | Outpatient (CLI) | payer MEDICARE ==
--- NOTE | 2023-01-28 11:12 | MR ---
EXAMINATION TYPE: MR abdomen wo/w con DATE OF EXAM: 01/27/2023 2:58 PM INDICATION: Patient age:Male; 77 years old; Reason for study: D41.01 renal ca;. Renal cancer. COMPARISON: MRI kidney 05/05/2022. TECHNIQUE: Multiplanar multi-sequence imaging was performed without contrast. Post contrast imaging was performed. Post IV contrast subtraction images were also submitted for review. IV Contrast: 7.5 cc Gadavist FINDINGS: LOWER CHEST: No gross irregularity. ABDOMEN Extensive breathing artifact is noted. Liver: Unremarkable. Gallbladder and Bile ducts: Unremarkable. Pancreas: Unremarkable. Spleen: Suspected prior injury to the splenic cortex with undulating border. Adrenal glands: Unremarkable. Kidneys: Right: No evidence of obstructive uropathy. There is an enhancing mass in the medial aspect measuring 16 mm. Which is similar to prior. Left: Left inferior pole cystic lesion measuring 3.5 cm with 19 mm peripheral nodule, previously 15 m m. Nodule does demonstrate some postcontrast enhancement Stomach and Bowel: Few scattered colonic diverticula are present. No evidence of bowel obstruction. Peritoneum: No evidence of pneumoperitoneum or free fluid. Vasculature: Unremarkable. No aortic aneurysm. Musculoskeletal: The osseous structures appear intact. Lymph Nodes: No gross evidence for lymphadenopathy. Abdominal wall: Unremarkable. IMPRESSION: 1. Interval increase in size of the mural nodule in the left inferior kidney renal cyst concerning f or renal cell carcinoma. 2. Right kidney 16 mm partially exophytic enhancing lesion suspicious for renal cell carcinoma. This is not significant change in size from prior on 05/05/2022.
== END | disposition home or self-care (01) ==
LOC: RADMRIMAIN 13:29
PROVIDERS: ATTEND Urology
DX: D41.01 Neoplasm of uncertain behavior of right kidney (principal); D41.02 Neoplasm of uncertain behavior of left kidney; N28.1 Cyst of kidney, acquired
CPT/HCPCS: 74183; A9585

== ENCOUNTER → 2023-04-04 | Outpatient (CLI) | payer MEDICARE ==
--- NOTE | 2023-04-04 10:44 | XR ---
EXAMINATION TYPE: XR chest 2V DATE OF EXAM: 04/04/2023 COMPARISON: NONE HISTORY: Shortness of breath TECHNIQUE: Frontal and lateral views of the chest are obtained. FINDINGS: Scattered senescent parenchymal changes noted. Hyperinflation compatible with COPD. No evidence for infiltrate. No evidence for atelectasis. Heart size is stable. Mediastinal structures are stable and grossly unremarkable. No evidence for hilar prominence. Degenerative changes dorsal spine. IMPRESSION: 1. No evidence for acute pulmonary disease.
[2023-04-04 15:18] LABS: Appearance,Urine Clear (Clear); Bilirubin,Urine Negative (Negative); Blood,Urine Negative (Negative); Color,Urine Yellow (Yellow); Ketones,Urine Negative (Negative); Nitrite,Urine Negative (Negative); PH, Urine 5.5; Specific Gravity,Urine 1.013 (1.001-1.030); Urobilinogen,Urine 0.2 E.U./DL
[2023-04-04 16:38] LABS: Basophils # (A) 0.08 X 10*3/uL (0.00-0.10); Basophils % (A) 1.1 %; Eosinophils # (A) 0.31 X 10*3/uL (0.04-0.35); Eosinophils % (A) 4.4 %; HCT 46.4 % (39.6-50.0); HGB 15.2 d/dL (13.0-17.0); Lymphocytes % (A) 31.1 %; MCH 30.8 pg (27.0-32.0); MCHC 32.8 d/dL (32.0-37.0); MCV 94.1 FL (80.0-97.0); Mean Platelet Volume 12.1 FL (9.5-12.2); Monocytes # (A) 0.84 X 10*3/uL (0.20-1.00); Monocytes % (A) 11.9 %; NRBC Per 100 WBC 0 X 10*3/uL (0.00-0.01); Neutrophils # (A) 3.62 X 10*3/uL (1.80-7.70); Neutrophils % (A) 51.2 %; Platelet Count 281 X 10*3/uL (140-440); RBC 4.93 X 10*6/uL (4.40-5.60); RDW 14.2 % (11.5-14.5); WBC 7.07 X 10*3/uL (4.50-10.00)
[2023-04-04 16:42] LABS: Blood Urea Nitrogen 12.6 mg/dL (9.0-27.0); Calcium 9.6 mg/dL (8.7-10.3); Carbon Dioxide 25.5 mmol/L (21.6-31.8); Chloride 106 mmol/L (96-109); Glucose 134 mg/dL (70-110); Sodium 141 mmol/L (135-145)
== END | disposition home or self-care (01) ==
LOC: LABPAT 09:29
PROVIDERS: ATTEND Urology
DX: Z01.812 Encounter for preprocedural laboratory examination (principal); D41.02 Neoplasm of uncertain behavior of left kidney; R31.29 Other microscopic hematuria; J44.9 Chronic obstructive pulmonary disease, unspecified; R06.02 Shortness of breath
CPT/HCPCS: 71046; 80048; 81003; 85025; 87086

== ENCOUNTER → 2024-03-14 | Outpatient (CLI) | payer MEDICARE ==
--- NOTE | 2024-04-08 07:47 | CT ---
Patient: Robby Mejia E Ordering Physician: Unknown, Unknown ID: [id number] Phone, Pager: P sony: N/A Pager: N/A : 1945 Age/Gender: 78Y, M Primary Location: N/A Procedure: CT ChestAbdPe lvis w con Study Date: 03/14/2024 10:36:00 AM EXAMINATION TYPE: CT ChestAbdPelvis w con DATE OF EXAM: 03/14/2024 INDICATION: Renal cancer bladder cancer, renal mass COMPARISON: 12/21/2021 CT DLP: 858.90 mGycm CONTRAST: Performed with Oral Contrast and with IV Contrast, patient injected with 80 mL of Isovue 300. TECHNIQUE: Axial images at 5 mm thick sections. Reconstructed images in the coronal plane. Delayed images through the kidneys. FINDINGS: CT CHEST: Thyroid is enlarged. There is a heterogenous hypodensity within the left lobe thyroid. Additional wor kup with ultrasound is recommended. No suspicious lung nodules or focal infiltrates are present. No enlarged mediastinal or hilar adenopathy is evident. The ascending aorta diameter at the level of the main pulmonary artery is 2.9 cm. The main pulmonary artery diameter at the bifurcation is 2.[address] ABDOMEN: Liver: Not fatty infiltration liver is present. Spleen: Normal Pancreas: Normal Adrenal glands: The adrenal glands are normal. Gallbladder: Normal Kidneys: There is a 1.9 cm enhancing mass in the medial anterior right upper lobe pole of the kidney. Series 3 image 57. This is larger than the previous measurement of 1.5 cm. No hydronephrosis is pre sent. No cysts are present. Some mild right hydroureter is present. Aorta: Vascular calcification is within the aorta. Inferior vena cava: Normal. CT PELVIS: Loops of bowel within the abdomen and pelvis are normal. Fecal debris is within the colon. A few div erticular changes are within the sigmoid colon. There are loops of bowel which are incompletely dis tended or lack oral contrast limiting their evaluation. Appendix: Normal as visualized. Urinary bladder: Some mild wall thickening along the right posterior lateral urinary bladder wall may be present. This may account for the mild hydroureter. This could reflect the patient's known bladde r cancer and appears stable from comparison. Genitourinary structures: Status prominent Osseous structures: No suspicious lytic or sclerotic lesions. Degenerative changes are in the lower l umbar spine. IMPRESSION: 1. Enlarging enhancing right upper renal pole mass currently measuring 1.9 cm. 2. Mild right hydroureter, stable. 3. Thickening of the right superolateral urinary bladder wall, stable from comparison.
== END | disposition home or self-care (01) ==
LOC: RADCTMAIN 08:45
PROVIDERS: ATTEND Urology
DX: C67.9 Malignant neoplasm of bladder, unspecified (principal); C64.2 Malignant neoplasm of left kidney, except renal pelvis; D41.01 Neoplasm of uncertain behavior of right kidney; N32.89 Other specified disorders of bladder; N13.4 Hydroureter
CPT/HCPCS: 71260; 74177; 36415; Q9967

== ENCOUNTER → 2024-04-18 | Outpatient (CLI) | payer MEDICARE ==
--- NOTE | 2024-04-22 08:06 | US ---
EXAMINATION TYPE: US thyroid st tissue head/neck DATE OF EXAM: 04/18/2024 COMPARISON: NONE CLINICAL INDICATION: Male, 78 years old with history of E04.1 THYROID NODULE; GLAND SIZE: Right Lobe: 4.3 x 1.5 x 1.7 cm Overall Parenchyma: heterogeneous Left Lobe: 4.4 x 2.3 x 2.4 cm Overall Parenchyma: heterogeneous Isthmus Thickness: 0.3 cm NODULES RIGHT: # of nodules measured on right: multiple small subcentimeter nodules LEFT: # of nodules measured on left: 1 1. 2.9 X 2.1 x 2.3 cm, lower mid, solid or almost completely solid, isoechoic nodule, which is wide r than tall, with ill-defined margins, without echogenic foci. Prior size: no previous ISTHMUS: # of nodules measured in the isthmus: 0 Bilateral neck scanned, no evidence of lymphadenopathy. IMPRESSION: 1. Mildly suspicious nodule left lobe thyroid. Fine-needle aspiration recommended 2017 ACR TI-RADS LEVEL: TR-RADS 3 - Mildly Suspicious: Follow if > 1.5 cm, FNA if > 2.5 cm *Highest TI-RADS level nodule reported [facility], , 04/22/2024 8:03 AM
== END | disposition home or self-care (01) ==
LOC: RADUSWWP 13:26
PROVIDERS: ATTEND Urology
DX: E04.1 Nontoxic single thyroid nodule (principal)
CPT/HCPCS: 76536

== ENCOUNTER 2024-05-23 07:59 | Day surgery (SDC) | payer MEDICARE ==
[2024-05-23 09:35] VITALS: RESP 18; TEMP 97.8
[2024-05-23 10:23] VITALS: BP 213/86; PULSE 64
--- NOTE | 2024-05-23 11:30 | US ---
EXAMINATION TYPE: US FNA thyroid first lesion DATE OF EXAM: 05/23/2024 10:07 AM COMPARISON: Thyroid ultrasound. CLINICAL INDICATION:Male, 78 years old with history of E04.1 NONTOXIC SINGLE THYROID NODULE; , ATTENDING: Dr. Duane Pierce PROCEDURE: Informed consent was obtained. The risks and benefits of the procedure were discussed with the patien t. The site was marked. Timeout procedure was performed Ultrasound imaging demonstrates left thyroid nodule The patient was prepped, draped in the usual sterile fashion, and locally anesthetized with 1% lidoca ine. Five fine needle aspiration were then performed with a 25 gauge needle. Samples were sent to [facility] pathology department for further analysis. Patient tolerated the procedure without incident and wa s sent home in stable condition. IMPRESSION: Successful ultrasound guided fine needle aspiration [facility], , 05/23/2024 11:28 AM
== END 2024-05-23 10:50 | disposition home or self-care (01) ==
LOC: RADPROMAIN 07:59
PROVIDERS: ATTEND Urology
DX: E04.1 Nontoxic single thyroid nodule (principal)
CPT/HCPCS: 10005; 88173; 88305

== ENCOUNTER 2024-05-23 10:41 | Emergency (ER) | payer MEDICARE ==
--- NOTE | 2024-05-23 11:23 | ED ---
General Adult HPI - General Chief complaint: Recheck/Abnormal Lab/Rx Stated complaint: high blood pressure Time Seen by Provider: 05/23/24 10:48 Source: patient, RN/MD, RN notes reviewed Mode of arrival: wheelchair Limitations: no limitations - History of Present Illness Initial comments: Patient is an 78-year-old male present to the emergency department with concern for high blood pressure. Patient does have history of borderline high blood pressure however not enough to start medications. Patient just saw his primary care physician regarding this. Patient was here for thyroid biopsy and blood pressure was somewhat high and recommended he come to the emergency department. Patient states he feels slightly lightheaded otherwise is symptom-free. Patient states he is hungry and wants to eat because he has not had anything to eat or drink yet today - Related Data Home Medications Medication Instructions Recorded Confirmed Donepezil [Aricept] 10 mg PO HS 12/07/22 05/14/24 Niacin 500 mg PO HS 12/07/22 05/14/24 Omeprazole [PriLOSEC] 20 mg PO HS 12/07/22 05/14/24 Simvastatin [Zocor] 40 mg PO HS 12/07/22 05/14/24 Allergies Allergy/AdvReac Type Severity Reaction Status Date / Time No Known Allergies Allergy Verified 05/23/24 10:43 Review of Systems ROS Statement: Those systems with pertinent positive or pertinent negative responses have been documented in the HPI. ROS Other: All systems not noted in ROS Statement are negative. Constitutional: Denies: fever Eyes: Denies: eye pain ENT: Denies: ear pain Respiratory: Denies: cough, dyspnea Cardiovascular: Denies: chest pain Neurological: Reports: as per HPI (Denies headache. Says slightly lightheaded). Denies: headache, weakness, confusion Past Medical History Past Medical History: GERD/Reflux, Memory Impairment, Osteoarthritis (OA), Thyroid Disorder Additional Past Medical History / Comment(s): Bladder cancer with chemo tx (last chemo 3 weeks ago)/, Hx TIAs (40 yrs ago)., Mass left kidney, thyroid nodule History of Any Multi-Drug Resistant Organisms: None Reported Additional Past Surgical History / Comment(s): bypass sx on leg >20yrs ago, bladder scrapings Past Anesthesia/Blood Transfusion Reactions: No Reported Reaction Past Psychological History: No Psychological Hx Reported Smoking Status: Former smoker Past Alcohol Use History: Daily Past Drug Use History: None Reported - Past Family History Mother Family Medical History: No Reported History General Exam Limitations: no limitations General appearance: alert, in no apparent distress Head exam: Present: normocephalic Eye exam: Present: normal appearance, PERRL Neck exam: Present: normal inspection Respiratory exam: Present: normal lung sounds bilaterally Cardiovascular Exam: Present: regular rate, normal rhythm, normal heart sounds Expanded Peripheral pulses: 2+: Radial (R), Radial (L) GI/Abdominal exam: Present: soft. Absent: tenderness Extremities exam: Present: normal inspection Neurological exam: Present: alert, oriented X3, CN II-XII intact. Absent: motor sensory deficit Psychiatric exam: Present: normal affect, normal mood Skin exam: Present: normal color Course Vital Signs 05/23/24 05/23/24 10:43 11:48 Temperature 97.8 F 97.8 F Pulse Rate 61 61 Respiratory 18 14 Rate Blood Pressure 205/82 153/82 O2 Sat by Pulse 97 100 Oximetry Medical Decision Making - Medical Decision Making Was pt. sent in by a medical professional or institution (, PA, PRINTING MACHINE OPERATOR, urgent care, hospital, or shelter...) When possible be specific @ -Patient was sent in by procedures Did you speak to anyone other than the patient for history (EMS, parent, family, police, friend...)? What history was obtained from this source @ - is present and helps provide history including history of borderline hypertension in the past and high blood pressure prior to arrival Did you review nursing and triage notes (agree or disagree)? Why? @ -I reviewed and agree with nursing and triage notes Were old charts reviewed (outside hosp., previous admission, EMS record, old EKG, old radiological studies, urgent care reports/EKG's, shelter records)? Report findings @ -No old charts were reviewed Differential Diagnosis (chest pain, altered mental status, abdominal pain women, abdominal pain men, vaginal bleeding, weakness, fever, dyspnea, syncope, h eadache, dizziness, GI bleed, back pain, seizure, CVA, palpatations, mental health, musculoskeletal)? @ -Differential Weakness: Hypoglycemia, shock, sepsis, hyponatremia, anemia, infection, DC, ETOH, adverse medicine reaction, overdose, stroke, this is not meant to be an all-inclusive list. . EKG interpreted by me (3pts min.). @ -As above X-rays interpreted by me (1pt min.). @ -None done CT interpreted by me (1pt min.). @ -None done U/S interpreted by me (1pt. min.). @ -None done What testing was considered but not performed or refused? (CT, X-rays, U/S, labs)? Why? @ -Considered further workup however blood pressure has normalized and patient is symptom-free. Patient will be discharged with follow-up What meds were considered but not given or refused? Why? @ -None Did you discuss the management of the patient with other professionals (professionals i.e. DrDalila, PA, PRINTING MACHINE OPERATOR, lab, RT, psych nurse, social media job titles, street light wirer, teacher, equal employment opportunity officer, case monitor)? Give summary @ -No Was smoking cessation discussed for >3mins.? @ -No Was critical care preformed (if so, how long)? @ -No Were there social determinants of health that impacted care today? How? (Homelessness, low income, unemployed, alcoholism, drug addiction, transportation, low edu. Level, literacy, decrease access to med. care, group home, rehab)? @ -No Was there de-escalation of care discussed even if they declined (Discuss DNR or withdrawal of care, Hospice)? DNR status @ -No What co-morbidities impacted this encounter? (DM, HTN, Smoking, COPD, CAD, Cancer, CVA, ARF, Chemo, Hep., AIDS, mental health diagnosis, sleep apnea, morbid obesity)? @ -None Was patient admitted / discharged? Hospital course, mention meds given and route, prescriptions, significant lab abnormalities, going to OR and other pertinent info. @ -Patient presents with hypertension. Patient is symptom-free and blood pressure normalized. Patient remains symptom-free. Patient we discharged for follow-up with his primary care physician Undiagnosed new problem with uncertain prognosis? @ -No Drug Therapy requiring intensive monitoring for toxicity (Heparin, Nitro, Insulin, Cardizem)? @ -No Were any procedures done? @ -No Diagnosis/symptom? @ -Hypertensive episode Acute, or Chronic, or Acute on Chronic? @ -Acute Uncomplicated (without systemic symptoms) or Complicated (systemic symptoms)? @ -Default Side effects of treatment? @ -No Exacerbation, Progression, or Severe Exacerbation? @ -No Poses a threat to life or bodily function? How? (Chest pain, USA, DC, pneumonia, PE, COPD, DKA, ARF, appy, cholecystitis, CVA, Diverticulitis, Homicidal, Suicidal, threat to staff... and all critical care pts) @ -No Disposition Clinical Impression: Episode of hypertension Disposition: HOME SELF-CARE Condition: Stable Instructions (If sedation given, give patient instructions): Hypertension (ED) Additional Instructions: Please follow-up with your primary care physician in the next couple of days for recheck. Return for increased blood pressure, weakness, worsening or changing symptoms or any other concerns Is patient prescribed a controlled substance at d/c from ED?: No Referrals: Carl Gonsales MD [Primary Care Provider] - 1-2 days Time of Disposition: 12:30
[2024-05-23 12:42] VITALS: BP 188/86; PULSE 59; RESP 16; TEMP 97.7
== END 2024-05-23 12:42 | disposition home or self-care (01) ==
LOC: EC 10:41
DX: I10 Essential (primary) hypertension (principal); Z87.891 Personal history of nicotine dependence
CPT/HCPCS: 99283

== ENCOUNTER → 2024-06-04 | Outpatient (CLI) | payer MEDICARE ==
--- NOTE | 2024-06-04 18:08 | MR ---
EXAMINATION TYPE: MR kidney wo/w con DATE OF EXAM: 06/04/2024 11:10 AM COMPARISON: MRI 01/27/2023 and 05/05/2022 CLINICAL INDICATION: Male, 78 years old with history of D41.01 renal mass; PHH, Bladder cancer, F/U r enal mass, abnormal MRI. TECHNIQUE: Multiplanar multi-sequence imaging was performed without contrast. Post contrast imaging was performed. Post IV contrast subtraction images were also submitted for review. IV Contrast: 7 mL Gadobutrol FINDINGS: LOWER CHEST: No gross irregularity. ABDOMEN Liver: No evidence for cirrhosis. Signal dropout on chemical shift out of phase imaging. Gallbladder and Bile ducts: No evidence for ductal dilation, or biliary stricture or evidence of chol edocholithiasis. The gallbladder is within normal limits. Pancreas: No ductal dilation. No evidence for solid mass. Spleen: Normal for size. Adrenal glands: Unremarkable. Kidneys: Suspected post treatment changes the left inferior kidney with prior cyst with mural nodule no longer visualized. There is heterogenous tissue in the location on today's exam. No abnormal postc ontrast enhancement definitively visualized in this region. No definitive solid mass. No obstructive uropathy or calculus visualized. Right kidney enhancing nodule measuring 15 mm similar to 01/27/2023 and 05/05/2022. No evidence for obs tructive uropathy. Stomach and Bowel: No evidence for bowel wall thickening or evidence for obstruction. Appendix is normal. Retroperitoneum/Peritoneum: No evidence of pneumoperitoneum or free fluid. Vasculature: No aortic aneurysm. Musculoskeletal: The osseous structures appear intact. Lymph Nodes: No gross evidence for lymphadenopathy. Abdominal wall: Unremarkable. IMPRESSION: 1. Similar size of right renal 15 mm enhancing nodule medially in the superior aspect. 2. Suspected post treatment changes the left inferior kidney. No definitive recurrence identified no lymphadenopathy. Continued strands recommended. 3. Hepatic steatosis. [facility], Workstation: [id number], 06/04/2024 6:06 PM
== END | disposition home or self-care (01) ==
LOC: RADMRIMAIN 09:24
PROVIDERS: ATTEND Urology
DX: D41.01 Neoplasm of uncertain behavior of right kidney (principal); K76.0 Fatty (change of) liver, not elsewhere classified; N28.89 Other specified disorders of kidney and ureter
CPT/HCPCS: 74183; A9585

== ENCOUNTER → 2024-07-11 | Outpatient (CLI) | payer MEDICARE ==
--- NOTE | 2024-07-11 13:14 | XR ---
EXAMINATION TYPE: XR chest 2V DATE OF EXAM: 07/11/2024 1:09 PM COMPARISON: Chest radiographs from 04/04/2023, CT chest abdomen pelvis 04/08/2024 TECHNIQUE: XR chest 2V Frontal and lateral views of the chest. CLINICAL INDICATION:Male, 79 years old with history of D41.01; FINDINGS: Lungs/Pleura: There is no evidence of pleural effusion, focal consolidation, or pneumothorax. Bibasi lar subsegmental atelectasis. Pulmonary vascularity: Unremarkable. Heart/mediastinum: Cardiomediastinal silhouette is unremarkable. Musculoskeletal: No acute osseous pathology. IMPRESSION: Bibasilar subsegmental atelectasis without evidence for focal consolidation. [facility], , 07/11/2024 1:12 PM
[2024-07-11 19:17] LABS: BUN/Creat Ratio 12.92 Ratio (12.00-20.00); Blood Urea Nitrogen 16.8 mg/dL (9.0-27.0); Calcium 9.6 mg/dL (8.7-10.3); Carbon Dioxide 24.9 mmol/L (21.6-31.8); Chloride 105 mmol/L (96-109); Glucose 199 mg/dL (70-110); Potassium 4.7 mmol/L (3.5-5.5); Sodium 141 mmol/L (135-145)
[2024-07-11 19:23] LABS: Basophils # (A) 0.06 X 10*3/uL (0.00-0.10); Basophils % (A) 0.8 %; Eosinophils # (A) 0.28 X 10*3/uL (0.04-0.35); Eosinophils % (A) 3.6 %; HGB 15.8 g/dL (13.0-17.0); Lymphocytes # (A) 2.34 X 10*3/uL (0.90-5.00); Lymphocytes % (A) 30.4 %; MCH 30.2 pg (27.0-32.0); MCHC 32.9 g/dL (32.0-37.0); MCV 91.8 FL (80.0-97.0); Mean Platelet Volume 10.7 FL (9.5-12.2); Monocytes # (A) 0.75 X 10*3/uL (0.20-1.00); Monocytes % (A) 9.7 %; NRBC Per 100 WBC 0 X 10*3/uL (0.00-0.01); Neutrophils # (A) 4.24 X 10*3/uL (1.80-7.70); Neutrophils % (A) 55.1 %; Platelet Count 301 X 10*3/uL (140-440); RBC 5.23 X 10*6/uL (4.40-5.60); RDW 12.7 % (11.5-14.5)
[2024-07-11 20:28] LABS: Appearance,Urine Turbid (Clear); Bilirubin,Urine Negative (Negative); Blood,Urine Negative (Negative); Color,Urine Yellow (Yellow); Ketones,Urine Negative (Negative); Nitrite,Urine Negative (Negative); PH, Urine 5.5; Specific Gravity,Urine 1.027 (1.001-1.030); Urobilinogen,Urine 0.2 E.U./DL
[2024-07-11 20:36] LABS: Bacteria,Urine None Seen (None Seen)
== END | disposition home or self-care (01) ==
LOC: RADXRMAIN 12:07
PROVIDERS: ATTEND Urology
DX: Z01.818 Encounter for other preprocedural examination (principal); D41.01 Neoplasm of uncertain behavior of right kidney; J98.11 Atelectasis
CPT/HCPCS: 36415; 71046; 80048; 81001; 85025; 86850; 86900; 86901; 87086; 93005

== ENCOUNTER 2024-07-19 05:33 | Day surgery (SDC) | payer MEDICARE ==
[2024-07-19] MEDS ORDERED: HYDROmorphone 0.5 MG/0.5 ML SYRINGE IVP PRN (07:00)
[2024-07-19] MEDS: fentaNYL (PF) 50 MCG/ML 2 ML AMP IVP PRN (07:07)
[2024-07-19] MEDS: MIDAZOLAM 2 MG/2 ML VIAL IV PRN (07:07)
[2024-07-19] MEDS: LACTATED RINGERS 1,000 ML IV SCH (07:17)
[2024-07-19] MEDS: ONDANSETRON 4 MG/2 ML VIAL IVP ONE (07:17)
[2024-07-19] MEDS: DEXAMETHASONE SOD PHOSPHATE 4 MG/ML 1 ML VIAL IV ONE (07:17)
[2024-07-19] MEDS: IV FLUID CONTINUATION 1,000 ML IV ONE ×2 (07:25)
--- NOTE | 2024-07-19 07:27 | P.HPIHPCON ---
History of Present Illness H&P Date: 07/19/24 Chief Complaint: Right renal mass This is a 79-year-old male with history of a 1.6 cm right sided upper pole renal mass. He does have history of renal cell carcinoma status post left partial nephrectomy in 2022. Lesion on the right side has been present for 2 years, but it has changed in consistency and features over time. Options of surveillance, versus cryoablation versus a partial nephrectomy was discussed with him and his in details. At this point he would like to proceed with a partial nephrectomy, aware of the risk which includes but not limited to bleeding, infection, injury to nearby organs. Discussed also potential of converting into a radical nephrectomy. Risk of anesthesia was also discussed. Discussed also potential of benign pathology. He understood all the risk and agreed to proceed Consent for Procedure: I have explained the operation/procedure to the patient, including the risks, benefits, side effects, alternative therapies (including not receiving the proposed treatment or service), the likelihood of the patient achieving his/her goals, and potential recuperation problems for the procedure/sedation/analgesia, as well as any blood products, if indicated. I also explained to the patient the risks, benefits and side effects of the alternatives, as well as the risks related to not receiving the proposed procedure, care, treatment, or services. Past Medical History Past Medical History: Cancer, GERD/Reflux, Memory Impairment, Osteoarthritis (OA) Additional Past Medical History / Comment(s): Bladder cancer with chemo tx (last chemo 3 weeks ago)/, Hx TIAs (40 yrs ago)., Mass left kidney. History of Any Multi-Drug Resistant Organisms: None Reported Additional Past Surgical History / Comment(s): bypass sx on leg >20yrs ago, bladder scrapings Past Anesthesia/Blood Transfusion Reactions: No Reported Reaction Additional Past Anesthesia/Blood Transfusion Reaction / Comment(s): no blood tx hx Smoking Status: Former smoker - Past Family History Mother Family Medical History: No Reported History Medications and Allergies Home Medications Medication Instructions Recorded Confirmed Type Donepezil [Aricept] 10 mg PO HS 12/07/22 07/19/24 History Niacin 500 mg PO HS 12/07/22 07/19/24 History Omeprazole [PriLOSEC] 20 mg PO HS 12/07/22 07/19/24 History Simvastatin [Zocor] 40 mg PO HS 12/07/22 07/19/24 History Allergies Allergy/AdvReac Type Severity Reaction Status Date / Time No Known Allergies Allergy Verified 07/19/24 06:13 Surgical - Exam Vital Signs Temp Pulse Resp BP Pulse Ox 97.8 F 62 18 210/91 98 07/19/24 06:22 07/19/24 06:22 07/19/24 06:22 07/19/24 06:22 07/19/24 06:22 - General no distress, no pain - Eyes normal ocular movement, no pale - ENT normal nares, normal mucosa - Respiratory normal expansion, normal respiratory effort - Abdomen Abdomen: soft, non tender Assessment and Plan Assessment: OR for right-sided robotic partial nephrectomy
[2024-07-19] MEDS: BUPIVACAINE (PF) 0.5% 30 ML VIAL SQ ONE ×2 (08:05→12:10)
--- NOTE | 2024-07-19 08:33 | P.ANPRN ---
Procedure Note - Anesthesia - Nerve Block Performed Bilateral Erector Spinae Single Time Out Performed: Yes ([id number]) Date of Procedure: 07/19/24 Procedure Start Time: 07:08 Procedure Stop Time: 07:13 Location of Patient: PreOp Indication: Acute Post-Operative Pain, Requested by Surgeon Specifically requested for management of pain by : Josafat Bernabe Sedation Type: Sedate with meaningful contact maintained Preparation: Sterile Prep Position: Supine Catheter: None Needle Types: Pajunk Needle Gauge: 21 Ultrasound used to visualize needle placement: Yes Ultrasound used to observe medication spread: Yes Injectate: 0.5% Ropivacaine (see comment for volume) (15cc+10cc nacl pf) Blood Aspirated: No Pain Paresthesia on Injection Noted: No Resistance on Injection: Normal Image Stored and Saved: Yes Events: Uneventful and Well Tolerated
[2024-07-19] MEDS: LACTATED RINGERS 1,000 ML IV ONE ×2 (10:14→12:18)
[2024-07-19] MEDS ORDERED: ONDANSETRON 4 MG/2 ML VIAL IVP PRN (12:04)
[2024-07-19] MEDS: hydrALAZINE HCL 20 MG/ML 1 ML VIAL IVP STA (13:38)
--- NOTE | 2024-07-19 17:23 | P.OP ---
Date of Procedure: 07/19/24 Preoperative Diagnosis: Right renal mass Postoperative Diagnosis: Same Procedure(s) Performed: Robotic assisted laparoscopic right-sided partial nephrectomy with intraoperative ultrasound Implants: None Anesthesia: HAA Surgeon: Josafat Bernabe Estimated Blood Loss (ml): 100 Pathology: other (Right renal mass) Condition: stable Disposition: PACU Indications for Procedure: This is a 79-year-old male with history of a 1.6 cm right sided upper pole renal mass. He does have history of renal cell carcinoma status post left partial nephrectomy in 2022. Lesion on the right side has been present for 2 years, but it has changed in consistency and features over time. Options of surveillance, versus cryoablation versus a partial nephrectomy was discussed with him and his in details. At this point he would like to proceed with a partial nephrectomy, aware of the risk which includes but not limited to bleeding, infection, injury to nearby organs. Discussed also potential of converting into a radical nephrectomy. Risk of anesthesia was also discussed. Discussed also potential of benign pathology. He understood all the risk and agreed to proceed Operative Findings: Right posterior upper pole partially exophytic renal mass Description of Procedure: The patient was taken to the operating room . General anesthesia was induced. She was prepped and draped in sterile fashion, and was placed in modified flank position . All pressure points were padded. The abdominal insufflation was achieved with the Veress needle. A 8 mm camera port was placed. Robotic trocars and assistant manager ports were placed under direct vision. a 5 mm liver retractor was placed. . The robot was docked into place. The colon was mobilized medially by incising along the white line of Toldt. Next the duodenum was kocherized. Once the bowel, was mobilized. At this time the gonadal vessel was visualized. Once the gonadal vessel and ureter was visualized , next after the psoas plane was developed the ureter and gonadal vessel was retracted anteriorly off the psoas muscle. Dissection proceeded cranially towards the renal hilum.The renal vessels were dissected. The renal artery and the vein was dissected in prepa ration for clamping. Of note patient had 2 renal arteries, and one renal vein. Next attention was carried to the tumor, the area around the tumor was defatted, insuring adequate defatting to identify a normal parenchyma. Patient had significant toxic fat surrounding the upper pole which make the dissection very challenging. After defatting the upper pole of the kidney, I was able to identify the tumor, was located along posterior upper pole, and was partially exophytic, intraoperative ultrasound was used to confirm the location and clearly identify the margin. The main renal artery was clamped with 2 bulldogs, the accessory renal artery was clamped using 1 bulldog, after clamping the renal artery the tumor was excised sharply with adequate margin, and cautery was used in areas of bleeding. Next the defect was closed in 2 layers using 30V lock for the inner layer, 20V lock in interrupted fashion for the outer layer. Sliding clip technique was used. Next the clamps were removed, there was no evidence of bleeding from the defect, total clamp time was 23 minutes. Hemostatic agents were applied The kidney tumor was placed in an Endo Catch bag. A CINTHIA drain was placed through the lower robotic trocor incision. The robot was then de-docked and the specimen was then removed by extending the assistant manager port. Fascia was closed with one layer using #2 vicryl . Skin was closed with subcuticular sutures and dermabond. The patient was awoken from general anesthesia in stable condition. all counts were correct Please refer to the final pathology report for final diagnosis
[2024-07-19] MEDS: D5-0.45% NACL WITH KCL 20MEQ/L 1,000 ML IV SCH (18:02)
[2024-07-19] MEDS: DONEPEZIL 10 MG TAB PO SCH (21:40)
[2024-07-19] MEDS: NIACIN TR 500 MG CAPLET PO SCH (21:40)
[2024-07-19] MEDS: ATORVASTATIN 20 MG TAB PO SCH (21:40)
[2024-07-19] MEDS: PANTOPRAZOLE 40 MG TABLET PO SCH (21:40)
[2024-07-20] MEDS: HYDROmorphone 1 MG/ML 1 ML SYRINGE IVP PRN (03:37)
[2024-07-20 09:11] LABS: HCT 44.1 % (39.6-50.0); HGB 13.9 g/dL (13.0-17.0); MCH 29.9 pg (27.0-32.0); MCHC 31.5 g/dL (32.0-37.0); MCV 94.8 FL (80.0-97.0); Mean Platelet Volume 11.3 FL (9.5-12.2); NRBC Per 100 WBC 0 X 10*3/uL (0.00-0.01); Platelet Count 284 X 10*3/uL (140-440); RBC 4.65 X 10*6/uL (4.40-5.60); RDW 13.4 % (11.5-14.5); WBC 17.84 X 10*3/uL (4.50-10.00)
[2024-07-20 09:43] LABS: Blood Urea Nitrogen 14.7 mg/dL (9.0-27.0); Calcium 8.6 mg/dL (8.7-10.3); Carbon Dioxide 19.9 mmol/L (21.6-31.8); Chloride 105 mmol/L (96-109); Glucose 237 mg/dL (70-110); Potassium 4.5 mmol/L (3.5-5.5); Sodium 138 mmol/L (135-145)
--- NOTE | 2024-07-20 10:38 | P.PN ---
Subjective Progress Note Date: 07/20/24 No acute overnight event, underwent right robotic partial nephrectomy yesterday. CINTHIA is draining serosanguineous output. Objective - Vital Signs Vital signs: Vital Signs Temp 98.9 F 07/20/24 07:11 Pulse 79 07/20/24 07:11 Resp 17 07/20/24 07:11 BP 146/75 07/20/24 07:11 Pulse Ox 91 L 07/20/24 08:03 FiO2 Intake & Output 07/19/24 07/20/24 07/20/24 18:59 06:59 18:59 Intake Total 2900 1330 Output Total 835 870 50 Balance 2065 460 -50 Weight 79.1 kg Intake: IV 2900 Oral 1330 Output: Drainage 20 20 50 Right Lower Abdomen 20 20 50 Urine 715 850 Estimated Blood Loss 100 Other: Voiding Method Indwelling Catheter Indwelling Catheter - Constitutional General appearance: Present: no acute distress - Gastrointestinal General gastrointestinal: Present: distended, soft. Absent: tenderness - Psychiatric Psychiatric: Present: A&O x's 3 - Labs CBC & Chem 7: 07/20/24 03:01 07/20/24 03:01 Labs: Abnormal Lab Results - Last 24 Hours (Table) 07/20/24 07/20/24 Range/Units 03:01 03:01 WBC 17.84 H (4.50-10.00) X 10*3/uL MCHC 31.5 L (32.0-37.0) g/dL Carbon Dioxide 19.9 L (21.6-31.8) mmol/L Anion Gap 13.10 H (4.00-12.00) mmol/L Est GFR (CKD-EPI) 46 L (>=60) BUN/Creatinine Ratio 9.80 L (12.00-20.00) Ratio Glucose 237 H (70-110) mg/dL Calcium 8.6 L (8.7-10.3) mg/dL Assessment and Plan Assessment: 79-year-old male status post right-sided robotic partial nephrectomy Will keep in the hospital for today Keep Perez and CINTHIA in place Repeat labs tomorrow
[2024-07-20] MEDS: ACETAMINOPHEN TAB 325 MG TAB PO PRN (19:44)
[2024-07-21 09:50] LABS: HCT 42.3 % (39.6-50.0); HGB 14.2 g/dL (13.0-17.0); MCH 31.1 pg (27.0-32.0); MCHC 33.6 g/dL (32.0-37.0); MCV 92.6 FL (80.0-97.0); Mean Platelet Volume 11.5 FL (9.5-12.2); NRBC Per 100 WBC 0 X 10*3/uL (0.00-0.01); Platelet Count 251 X 10*3/uL (140-440); RBC 4.57 X 10*6/uL (4.40-5.60); RDW 13.1 % (11.5-14.5); WBC 13.35 X 10*3/uL (4.50-10.00)
[2024-07-21 09:59] LABS: BUN/Creat Ratio 7.23 Ratio (12.00-20.00); Blood Urea Nitrogen 9.4 mg/dL (9.0-27.0); Glucose 218 mg/dL (70-110)
[2024-07-21 10:00] LABS: Calcium 8.5 mg/dL (8.7-10.3); Carbon Dioxide 22.1 mmol/L (21.6-31.8); Chloride 104 mmol/L (96-109); Potassium 4.3 mmol/L (3.5-5.5); Sodium 135 mmol/L (135-145)
--- NOTE | 2024-07-21 10:13 | P.DS ---
Providers Attending physician: Josafat Bernabe MD Primary care physician: [facility] Course: This is an 79-year-old male with history of right-sided renal mass. Underwent a right-sided robotic partial nephrectomy on Jul 19. Please see op note dated Jul 19 for surgery details. Patient was admitted to the hospital postoperatively. CINTHIA drain and Perez catheter were removed on postop day #2. He was discharged home on postop day #2 at time of discharge he was tolerating a diet, ambulating, and pain was controlled Plan - Discharge Summary Discharge Rx Participant: No New Discharge Prescriptions: New Ketorolac [Toradol] 10 mg PO Q6HR PRN #15 tab PRN Reason: Pain No Action Omeprazole [PriLOSEC] 20 mg PO HS Donepezil [Aricept] 10 mg PO HS Niacin 500 mg PO HS Simvastatin [Zocor] 40 mg PO HS Discharge Medication List Donepezil [Aricept] 10 mg PO HS 12/07/22 [History] Niacin 500 mg PO HS 12/07/22 [History] Omeprazole [PriLOSEC] 20 mg PO HS 12/07/22 [History] Simvastatin [Zocor] 40 mg PO HS 12/07/22 [History] Ketorolac [Toradol] 10 mg PO Q6HR PRN #15 tab 07/21/24 [Rx]
[2024-07-21 11:25] LABS: Basophils # (A) 0.06 X 10*3/uL (0.00-0.10); Basophils % (A) 0.4 %; Eosinophils # (A) 0.53 X 10*3/uL (0.04-0.35); Lymphocytes # (A) 1.79 X 10*3/uL (0.90-5.00); Lymphocytes % (A) 13.4 %; Monocytes # (A) 1.52 X 10*3/uL (0.20-1.00); Monocytes % (A) 11.4 %; Neutrophils # (A) 9.41 X 10*3/uL (1.80-7.70); Neutrophils % (A) 70.5 %; RBC Morphology Normal (Normal)
[2024-07-22 03:07] VITALS: PULSE 76; RESP 15
[2024-07-22 07:56] VITALS: BP 134/52; TEMP 98.3
--- NOTE | 2024-07-22 08:49 | P.DS ---
Providers Expected date of discharge: 07/22/24 Attending physician: Josafat Bernabe MD Primary care physician: [facility] Course: This is an 79-year-old male with history of right-sided renal mass. Underwent a right-sided robotic partial nephrectomy on Jul 19. Please see op note dated Jul 19 for surgery details. Patient was admitted to the hospital postoperatively. CINTHIA drain and Perez catheter were removed on postop day #2. He was discharged home on postop day #3. At time of discharge he was tolerating diet, ambulating, and pain was controlled. Procedures: Robotic assisted laparoscopic right partial nephrectomy on July 19, 2024. Patient Condition at Discharge: Good Plan - Discharge Summary Discharge Rx Participant: No New Discharge Prescriptions: New Ketorolac [Toradol] 10 mg PO Q6HR PRN #15 tab PRN Reason: Pain No Action Omeprazole [PriLOSEC] 20 mg PO HS Donepezil [Aricept] 10 mg PO HS Niacin 500 mg PO HS Simvastatin [Zocor] 40 mg PO HS Discharge Medication List Donepezil [Aricept] 10 mg PO HS 12/07/22 [History] Niacin 500 mg PO HS 12/07/22 [History] Omeprazole [PriLOSEC] 20 mg PO HS 12/07/22 [History] Simvastatin [Zocor] 40 mg PO HS 12/07/22 [History] Ketorolac [Toradol] 10 mg PO Q6HR PRN #15 tab 07/21/24 [Rx] Follow up Appointment(s)/Referral(s): Josafat Bernabe MD [STAFF PHYSICIAN] - 1 Week Activity/Diet/Wound Care/Special Instructions: May shower on July 24, 2024. No lifting or strenuous activity. Discharge Disposition: HOME SELF-CARE
== END 2024-07-22 12:05 | disposition home or self-care (01) ==
LOC: OR 05:33 → 4SSUR 14:12 → OR 07-22 12:05
PROVIDERS: ATTEND Urology
DX: C64.1 Malignant neoplasm of right kidney, except renal pelvis (principal); G89.18 Other acute postprocedural pain; K21.9 Gastro-esophageal reflux disease without esophagitis; M19.90 Unspecified osteoarthritis, unspecified site; R41.3 Other amnesia; Z85.528 Personal history of other malignant neoplasm of kidney; Z85.51 Personal history of malignant neoplasm of bladder; Z90.5 Acquired absence of kidney; Z79.899 Other long term (current) drug therapy; Z92.21 Personal history of antineoplastic chemotherapy; Z86.73 Personal history of transient ischemic attack (TIA), and cerebral infarction without residual deficits; Z98.890 Other specified postprocedural states; Z87.891 Personal history of nicotine dependence
CPT/HCPCS: 50543; S2900; 64999; 80048; 85027; 88307

== ENCOUNTER → 2024-12-25 | Outpatient (CLI) | payer MEDICARE ==
[2024-12-25 10:54] LABS: ALT 26 U/L (4-49); AST 24 U/L (17-59); African American GFR (CKD) 51 (>60 ml/min/1.73 sqM); Albumin 4.5 g/dL (3.5-5.0); Albumin/Globulin Ratio 1.1; Alkaline Phosphatase 103 U/L (38-126); Anion Gap 11 mmol/L; Blood Urea Nitrogen 19 mg/dL (9-20); Calcium 10.1 mg/dL (8.4-10.2); Carbon Dioxide 25 mmol/L (22-30); Chloride 104 mmol/L (98-107); Glucose 163 mg/dL (74-99); Non-African American GFR(CKD) 44 (>60 ml/min/1.73 sqM); Potassium 4.8 mmol/L (3.5-5.1); Sodium 140 mmol/L (137-145); Total Protein 8.5 g/dL (6.3-8.2)
--- NOTE | 2024-12-25 12:14 | XR ---
EXAMINATION TYPE: XR chest 2V DATE OF EXAM: 12/25/2024 CLINICAL INDICATION: Male, 79 years old with history of C67.9 BLADDER CANCER, TECHNIQUE: Frontal and lateral views of the chest are obtained. COMPARISON: Chest x-ray July 11, 2024 FINDINGS: There is cardiomegaly with bibasilar increased opacities redemonstrated. No pleural effus ion or pneumothorax seen bilaterally. The osseous structures are intact. IMPRESSION: Cardiomegaly with chronic parenchymal changes in the lower lungs. No suspicious new acute pulmonary process. [facility], , 12/25/2024 12:12 PM
--- NOTE | 2024-12-29 12:02 | CT ---
EXAMINATION TYPE: CT urogram wo/w con DATE OF EXAM: 12/25/2024 11:57 AM COMPARISON: None. 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 Reconstructed images are reviewed on the computer in the coronal plane. CONTRAST: 80 mL of Isovue 300. Study performed DLP: 1823.1 mGycm, Automated exposure control for dose reduction was used. FINDINGS: Limited CT sections are obtained the lung bases. No suspicious lung base changes. CT ABDOMEN: Liver: Normal Spleen: Normal Pancreas: Normal Adrenal glands: The adrenal glands are normal. Gallbladder: Normal Kidneys: No masses are evident. Prior anterior superior renal mass may have been resected. Mild left hydronephrosis. Mild left hydroureter is present which extends the urinary bladder. No discrete abnor mality of the urinary bladder. Some subtle urinary bladder wall thickening would be difficult to excl ude. No cysts are present. No renal stones are evident. Aorta: Vascular calcification is within the aorta. Inferior vena cava: Normal. CT PELVIS: Loops of bowel within the abdomen and pelvis are normal. A few diverticuli within the sigmoid colon. This study is without oral contrast limiting evaluation. Appendix: Normal as visualized. Urinary bladder: There is some subtle thickening along the right posterior lateral portion of the uri nary bladder may be the patient's reported urinary bladder cancer. This was better visualized previou sly and appears more extensive than previously than currently. Genitourinary structures: Prostate is prominent Osseous structures: No suspicious lytic or sclerotic lesions. No suspicious adenopathy evident. IMPRESSION: 1. Mild right hydronephrosis and hydroureter to the urinary bladder. Urinary bladder wall may have s ome mild thickening along its right aspect. Findings better visualized previously. 2. No recurrent masses within the right kidney. [facility], , 12/29/2024 11:59 AM
== END | disposition home or self-care (01) ==
LOC: RADCTMAIN 10:02
PROVIDERS: ATTEND Urology
DX: C64.2 Malignant neoplasm of left kidney, except renal pelvis (principal); C64.1 Malignant neoplasm of right kidney, except renal pelvis; C67.9 Malignant neoplasm of bladder, unspecified; I51.4 Myocarditis, unspecified; J98.4 Other disorders of lung; N13.30 Unspecified hydronephrosis; N13.4 Hydroureter
CPT/HCPCS: 80053; 71046; 74178; 36415; 74400; Q9967